=== PATIENT | female | born 2005 | race Caucasian/White ===

== ENCOUNTER 2024-09-26 05:02 | Emergency (ER) | payer SELFPAY ==
[~2024-09-26] VITALS: Ht 162.6 cm; Wt 58.0 kg
[2024-09-26 05:12] VITALS: O2SAT 98
[2024-09-26] MEDS: ONDANSETRON HCL 4MG/2ML INJ IV ONE (05:49)
[2024-09-26] MEDS: MORPHINE SULFATE 4 MG/ML INJ (FOR IV/IM USE) IV ONE (05:49)
[2024-09-26 06:14] LABS: BASOPHILS % 0.4 % (0.0-2.0); EOSINOPHILS % 0.4 % (0.0-5.0); HEMATOCRIT. 40.6 % (36.0-48.0); HEMOGLOBIN. 13.3 g/dL (12.0-16.0); LYMPHOCYTES % 20.3 % (20.0-50.0); MEAN CORPUSCULAR HEMOGLOBIN 27.2 pg (28.0-32.0); MEAN CORPUSCULAR HGB CONC 32.6 g/dL (31.0-37.0); MEAN CORPUSCULAR VOLUME 83.3 fL (81.0-99.0); MEAN PLATELET VOLUME 9.2 fl (7.4-10.4); MONOCYTES % 6.1 % (2.0-8.0); NEUTROPHILS % 72.8 % (40.0-76.0); PLATELET 255 x1000/uL (130-400); RED BLOOD CELL COUNT 4.87 mill/uL (4.2-5.4); RED CELL DISTRIBUTION WIDTH 15.1 % (11.6-14.6); WHITE BLOOD COUNT 8.5 x1000/uL (4.5-11.0)
[2024-09-26 06:19] LABS: CHLORIDE 108 mEq/L (98-107); POTASSIUM 3.1 mEq/L (3.5-5.1); SODIUM 141 mEq/L (136-145)
[2024-09-26 06:20] LABS: CALCIUM 9.5 mg/dL (8.7-10.4); CARBON DIOXIDE 22 mEq/L (21-32)
[2024-09-26 06:25] LABS: CREATININE 0.9 mg/dL (0.6-1.0); GLUCOSE 100 mg/dL (70-105); UREA NITROGEN BLOOD 11 mg/dL (9-23)
[2024-09-26 06:26] LABS: HCG SCREEN NEGATIVE
[2024-09-26 06:27] LABS: INR 0.9; PROTHROMBIN TIME 10.3 sec (9.6-11.0)
[2024-09-26] MEDS: IOHEXOL-300 100 ML BOTTLE ONE (07:46)
[2024-09-26] MEDS: MORPHINE SULFATE 2 MG/ML INJ (NOT FOR IM USE) IV ONE (07:46)
[2024-09-26 07:53] LABS: ALANINE AMINOTRANSFERASE 22 IU/L (10-49); ALBUMIN 5.2 g/dL (3.2-4.8); ASPARTATE AMINOTRANSFERASE 56 IU/L (<34); BILIRUBIN DIRECT 0.2 mg/dL (<=3.0); BILIRUBIN TOTAL 0.7 mg/dL (0.1-1.0); PROTEIN TOTAL 8.5 g/dL (6.0-8.3)
[2024-09-26] MEDS: MORPHINE SULFATE 2 MG/ML INJ (NOT FOR IM USE) IV NR (08:21)
[2024-09-26] MEDS: KETOROLAC 30MG/ML VIAL IV ONE (08:36)
[2024-09-26] MEDS ORDERED: LIDO700A15 TP (08:46)
[2024-09-26] MEDS ORDERED: METH-653 MT (08:46)
[2024-09-26] MEDS ORDERED: IBUP-2028 MT (08:46)
[2024-09-26] MEDS ORDERED: HYDR-4001 MT (08:47)
[2024-09-26] MEDS: POTASSIUM CHLORIDE 20MEQ TABLET SR PO ONE (09:19)
[2024-09-26] MEDS: HYDROCODONE/ACETAMINOPHEN 7.5/325MG TABLET PO ONE (09:28)
[2024-09-26 09:37] VITALS: BP 121/78; PULSE 90; RESP 14; TEMP 36.94740; O2SAT 99
== END 2024-09-26 09:38 | disposition home or self-care (01) ==
LOC: ER 05:02
DX: S22.019A Unspecified fracture of first thoracic vertebra, initial encounter for closed fracture (principal); M54.9 Dorsalgia, unspecified; M41.9 Scoliosis, unspecified; R41.0 Disorientation, unspecified; Z88.1 Allergy status to other antibiotic agents; Z88.0 Allergy status to penicillin; V49.59XA Passenger injured in collision with other motor vehicles in traffic accident, initial encounter; Y93.89 Activity, other specified; Y92.89 Other specified places as the place of occurrence of the external cause; Y99.8 Other external cause status
CPT/HCPCS: 80076; 80048; 84703; 85025; 85610; 85730; 86850; 86900; 86901; 36415; 70450; 71260; 72125; 74177; 96374; 96375; 96376; 99285; Q9967; J1885; J2405; J2270 ×2; Z7610 ×3